=== PATIENT | male | born 1965 | race Caucasian/White ===

== ENCOUNTER 2022-04-24 10:50 | Day surgery (SDC) | payer MEDICAID ==
[~2022-04-24] VITALS: Ht 188 cm; Wt 112.7 kg
[~2022-04-24 10:50] MED LIST: NALT50TA10; ZES10T PO
[2022-04-24] MEDS ORDERED: MIDAZolam 1 MG/ML 5ML VIAL ONE (11:00)
[2022-04-24] MEDS ORDERED: fentaNYL/PF 50MCG/1 ML 2ML syringe ONE ×2 (11:00→13:16)
[2022-04-24] MEDS ORDERED: LIDOcaine Viscous 15ml cup ONE (11:00)
[2022-04-24 11:03] VITALS: BP 124/89
[2022-04-24] MEDS ORDERED: CARV6.253 PO (11:19)
[2022-04-24] MEDS ORDERED: OMEP40CA21 PO (11:19)
[2022-04-24] MEDS ORDERED: diphenhydrAMINE 50 mg/ml inj ONE (13:16)
[2022-04-24 14:14] VITALS: BP 124/82
[2022-04-24 14:24] VITALS: BP 123/80
[2022-04-24 14:34] VITALS: BP 135/81
== END 2022-04-24 14:53 | disposition home or self-care (01) ==
LOC: GI LAB 10:50
PROVIDERS: ATTEND Internal Medicine Gastroenterology
DX: K92.1 Melena (principal); K64.2 Third degree hemorrhoids; K64.4 Residual hemorrhoidal skin tags; K57.30 Diverticulosis of large intestine without perforation or abscess without bleeding; K21.00 Gastro-esophageal reflux disease with esophagitis, without bleeding; K31.7 Polyp of stomach and duodenum; K29.70 Gastritis, unspecified, without bleeding
CPT/HCPCS: 43239; 45378; J1200; J2250; J3010; J7030; Z7512; 99152; 99153; A4620